=== PATIENT | male | born 1955 | race Caucasian/White ===

== ENCOUNTER 2016-06-04 14:03 | Emergency (ER) | payer MEDICARE, MEDICAID ==
[2016-06-04] MEDS ORDERED: Sodium Chloride 0.9% 1,000 ML IV ONE (15:15)
[2016-06-04] MEDS ORDERED: Sodium Chloride 0.9% 1,000 ML ONE (15:41)
[2016-06-04 15:49] LABS: BASO % 0.3 % (0.0-2.0); EOS # 0.1 K/uL (0.0-0.7); LYMPH # 0.6 K/uL (1.0-4.3); LYMPH % 12.7 % (20.0-40.0); MEAN CORPUSCULAR HEMOGLOBIN 31.3 pg (27.0-31.0); MEAN CORPUSCULAR HGB CONC 34.4 g/dL (33.0-37.0); MEAN PLATELET VOLUME 8.5 fL (7.2-11.7); MONO # 0.5 K/uL (0.0-0.8); MONO % 9.6 % (0.0-10.0); NRBC % 0.1 % (0.0-2.0); RED CELL DISTRIBUTION WIDTH 14.1 % (11.5-14.5); WHITE BLOOD COUNT 5.1 K/uL (4.8-10.8)
[2016-06-04 15:54] LABS: CHLORIDE 93 mmol/L (98-107); MEAN CELL VOLUME 90.8 fL (80.0-94.0); POTASSIUM 4.1 mmol/L (3.6-5.2); SODIUM 135 mmol/L (132-148)
[2016-06-04 15:56] LABS: ALB/GLOB RATIO 1.3 (1.0-2.1); ALKALINE PHOSPHATASE 80 U/L (38-126); AST/SGOT 133 U/L (17-59); CARBON DIOXIDE 27 mmol/L (22-30); GFR AFRICAN-AMERICAN > 60; TOTAL PROTEIN 7.6 g/dL (6.3-8.3)
[2016-06-04 15:57] LABS: ALCOHOL SERUM < 10 mg/dl (0-10); ALT/SGPT 100 U/L (21-72); BLOOD UREA NITROGEN 16 mg/dL (9-20); CALCIUM 8.9 mg/dl (8.6-10.4); GLUCOSE,RANDOM 249 mg/dL (75-110); MAGNESIUM 1.7 mg/dL (1.6-2.3)
--- NOTE | 2016-06-04 17:33 | CT ---
PROCEDURE: CT HEAD WITHOUT CONTRAST. HISTORY: Headache COMPARISON: 11/28/2011 TECHNIQUE: Axial computed tomography images were obtained through the head/brain without intravenous contrast. Radiation dose: Total exam DLP = mGy-cm. FINDINGS: HEMORRHAGE: No intracranial hemorrhage. BRAIN: No mass effect or edema. No atrophy or chronic microvascular ischemic changes. VENTRICLES: Unremarkable. No hydrocephalus. CALVARIUM: Unremarkable. PARANASAL SINUSES: Unremarkable as visualized. No significant inflammatory changes. MASTOID AIR CELLS: Unremarkable as visualized. No inflammatory changes. OTHER FINDINGS: None. IMPRESSION: Normal CT of the Head.
--- NOTE | 2016-06-04 17:36 | CT ---
PROCEDURE: CT Cervical Spine without contrast HISTORY: Neck pain. History of cervical spine surgery COMPARISON: No prior similar study available for comparison TECHNIQUE: Axial computed tomography images were obtained of the cervical spine without the use of intravenous contrast. Coronal and sagittal reformatted images were created and reviewed. Radiation dose: Total exam DLP = 487.09 mGy-cm. FINDINGS: VERTEBRAE: Patient status post posterior fusion and internal fixation extending from C4 to C7. The hardware are seen at appropriate position. The patient is also status post laminectomy at C4 to C7. Normal alignment of the cervical spine. No evidence of subluxation. No evidence of acute fracture. Large anterior osteophyte formation seen specially at C2-C3 and C4. DISCS/SPINAL CANAL/NEURAL FORAMINA: Degenerative disc changes. Osteophyte disc bulging complex. PARASPINAL SOFT TISSUES: Unremarkable. OTHER FINDINGS: None. IMPRESSION: No evidence of acute pathology. Status post posterior internal fixation/ fusion extending from C4- to C7 and laminectomy also from C4-C7. Diffuse degenerative changes.
[2016-06-04 18:13] VITALS: BP 158/95; PULSE 101; RESP 18; TEMP 98.4; O2SAT 98
--- NOTE | 2016-06-04 18:38 | C.PDOC ---
History Of Present Illness Pt c/o atraumatic neck pain. Time Seen by Provider: 06/04/16 14:47 History Per: Patient Onset/Duration Of Symptoms: Days Current Symptoms Are (Timing): Still Present Quality Of Discomfort: Unable To Describe, "Pain" Severity: Moderate Previous Symptoms: Neck Pain, Chronic Pain, Prior Surgery Associated Symptoms: None Exacerbating Factor(s): Nothing Additional History Per: Prior Records Past Medical History Reviewed: Historical Data, Nursing Documentation, Vital Signs Vital Signs: Last Vital Signs Temp 98.4 F 06/04/16 18:13 Pulse 101 H 06/04/16 18:13 Resp 18 06/04/16 18:13 BP 158/95 H 06/04/16 18:13 Pulse Ox 98 06/04/16 18:13 - Medical History PMH: Arthritis, Asthma, Back Problems, Diabetes, HTN, Hypercholesterolemia Other Surgeries: C-spine surgery. - [employer] Procedures ANESTH INJEC PERIPH NERV (08/31/13) ANESTH INJECT SYMP NERVE (06/08/13) ANESTH INJECT-SPIN CANAL (05/07/13) CL FX REDUC-FINGER (05/07/13) INJECT STEROID (08/31/13) INJECT/INFUSE NEC (06/18/14) LUMBOSAC SPINE X-RAY NEC (05/07/13) PERIPH NERVE INJECT NEC (08/31/13) SPINAL CANAL INJECT NEC (05/07/13) SYMPATH NERVE INJECT NEC (06/08/13) Family History: States: Unknown Family Hx - Social History Hx Tobacco Use: Yes Hx Alcohol Use: No Hx Substance Use: No - Immunization History Hx Tetanus Toxoid Vaccination: No Hx Influenza Vaccination: Yes Hx Pneumococcal Vaccination: No Review Of Systems Except As Marked, All Systems Reviewed And Found Negative. Constitutional: Negative for: Fever, Weakness ENT: Negative for: Throat Pain, Throat Swelling Cardiovascular: Negative for: Chest Pain Respiratory: Negative for: Shortness of Breath, Hemoptysis Gastrointestinal: Negative for: Nausea, Vomiting, Abdominal Pain Musculoskeletal: Positive for: Neck Pain Skin: Negative for: Rash Neurological: Positive for: Headache. Negative for: Weakness, Numbness, Incoordination, Change in Speech, Confusion, Seizures, Altered Mental Status, Dizziness Physical Exam - Physical Exam Appears: Non-toxic, No Acute Distress Skin: Normal Color, Warm, Dry, No Rash Head: Atraumatic, Normacephalic Eye(s): bilateral: PERRL, EOMI Neck: Normal ROM, No Step Off Deformity, Supple Cardiovascular: Rhythm Regular Respiratory: Normal Breath Sounds, No Accessory Muscle Use Gastrointestinal/Abdominal: Soft, No Tenderness Back: No CVA Tenderness Extremity: Normal ROM Neurological/Psych: Oriented x3, Normal Speech, Normal Cognition, No Cerebellar Signs, Normal Motor, Normal Sensation ED Course And Treatment - Laboratory Results Result Diagrams: 06/04/16 15:41 06/04/16 15:41 Lab Interpretation: No Acute Changes ECG: Interpreted By Me, Viewed By Me ECG Rhythm: Sinus Tachycardia, Nonspecific Changes Rate From EC O2 Sat by Pulse Oximetry: 98 Pulse Ox Interpretation: Normal - CT Scan/US CT head Other Rad Studies (CT/US): Read By Radiologist, Radiology Report Reviewed CT/US Interpretation: IMPRESSION: Normal CT of the Head. C-spine Other Rad Studies (CT/US): Read By Radiologist, Radiology Report Reviewed CT/US Interpretation: IMPRESSION: No evidence of acute pathology. Status post posterior internal fixation/ fusion extending from C4- to C7 and laminectomy also from C4-C7. Diffuse degenerative changes. Reassessment Condition: Improved Disposition Counseled Patient/Family Regarding: Studies Performed, Diagnosis, Need For Followup, Rx Given - Disposition Referrals: Sandra Hdez MD [Medical Doctor] - Disposition: HOME/ ROUTINE Disposition Time: 18:41 Condition: IMPROVED Additional Instructions: Follow up with your doctor for further evaluation and treatment. Return to the ER if you develop weakness, numbness, fever, vomiting, worsening of symptoms or if you have any other concerns. Prescriptions: Naproxen [Naprosyn] 1 tab PO BID PRN #20 tab PRN Reason: Pain traMADol/Acetaminophen [Ultracet 325 MG-37.5 MG] 1 tab PO Q4 PRN #30 tab PRN Reason: Pain, Severe (8-10) Instructions: Chronic Pain (ED) - Clinical Impression Clinical Impression: Degenerative joint disease of cervical spine, Chronic neck pain
== END 2016-06-04 18:54 | disposition home or self-care (01) ==
LOC: C.ER 14:03
DX: M47.892 Other spondylosis, cervical region (principal); M54.2 Cervicalgia; G89.29 Other chronic pain
CPT/HCPCS: 70450; 72125; 80053; 82009; 82948; 83735; 84484; 85025; 96360; 96372; 99285; G0480; J1885; J7040